=== PATIENT | male | born 2000 | race Caucasian/White ===

== ENCOUNTER 2021-09-22 11:10 | Emergency (ER) | payer OTHER, SELFPAY ==
--- NOTE | ~2021-09-22 | CT_ITS ---
EXAMINATION: CT brain wo con INDICATION: Head injury COMPARISON: None TECHNIQUE: Standard unenhanced head CT. The dose-length product (DLP) was 605.33 mGy-cm. The mA was a djusted according to patient size. Iterative reconstruction technique was employed. FINDINGS: There is no intracranial hemorrhage, acute infarction, or abnormal mass lesion. The ventric les are normal. There is no abnormal mass effect or midline shift. The kaminski-white matter differentiat ion is normal. The basal cisterns are patent. The orbits are normal. The paranasal sinuses, mastoids and calvarium are normal. IMPRESSION: 1. No acute intracranial abnormality. Reviewed, dictated and finalized at location B.
--- NOTE | ~2021-09-22 | CT_ITS ---
EXAMINATION: CT facial & cervical spine wo DATE: 09/22/2021 12:31 INDICATION: Head injury TECHNIQUE: Computed tomography (CT) of the maxillofacial region and cervical spine was performed with out intravenous contrast. The dose-length product (DLP) was 362.45 mGy-cm. Automated exposure control and iterative reconstruction technique were employed. COMPARISON: None FINDINGS: MAXILLOFACIAL CT: No facial fracture is identified. The globes and orbits are intact. There is mild frontal scalp soft tissue swelling. There is mild mucosal thickening of the maxillary sinuses. Small polyp or mucous ret ention cyst is noted in the left maxillary sinus. CERVICAL SPINE CT: There is no fracture, dislocation, or subluxation. The vertebral body heights, alignment, and interve rtebral disc spaces are normal. The paravertebral soft tissues are unremarkable. The odontoid is inta ct. IMPRESSION: 1. No facial bone fracture. 2. Normal cervical spine. Reviewed, dictated and finalized at location B.
[2021-09-22 11:29] VITALS: BP 127/70; PULSE 74; RESP 18; TEMP 36.4; O2SAT 99
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
== END 2021-09-22 13:06 | disposition home or self-care (01) ==
PROVIDERS: Emergency Provider Nurse Practitioner Family; PCP Nurse Practitioner Family
DX: S09.90XA Unspecified injury of head, initial encounter (principal); S16.1XXA Strain of muscle, fascia and tendon at neck level, initial encounter; V49.40XA Driver injured in collision with unspecified motor vehicles in traffic accident, initial encounter
CPT/HCPCS: 70450; 70486; 72125; 99284

== ENCOUNTER 2021-12-15 16:55 | Emergency (ER) | payer OTHER, SELFPAY ==
--- NOTE | 2021-12-15 16:57 | ED.MALEGU ---
HPI - Male Genitourinary General Chief complaint: Urogenital-Male Stated complaint: STD Test Time Seen by Provider: 12/15/21 16:56 Source: patient Mode of arrival: ambulatory Limitations: no limitations History of Present Illness HPI Narrative: Mr. Michel is a 21-year-old male patient presenting to the clinic today with complaints of possible STD. He would like STD testing today. Related Data Home Medications Medication Instructions Recorded Confirmed emtricitabine 200 mg-tenofovir 1 tablet PO DIRECTED 12/15/21 12/15/21 disoproxil fumarate 300 mg tablet Allergies Allergy/AdvReac Type Severity Reaction Status Date / Time clindamycin Allergy Intermediate Rash Verified 12/15/21 17:09 Review of Systems Review of Systems: Pertinent positives per HPI. Patient denies any fever, chills, rash, headache, visual changes, dizziness, cough, runny nose, sore throat, shortness of breath, chest pain, palpitations, nausea, vomiting, diarrhea, constipation, abdominal pain, or any urinary issues. PMFSH Comments At the time of my signature, I reviewed and agree with the nursing past medical, surgical, social, and family history. There is no relevant family history pertinent to the patient complaint. Exam Narrative: General: Well-developed, well nourished, in no apparent distress. Head: Normocephalic, atraumatic. Cardio: Regular rate and rhythm, s1 and s2 normal, no murmur appreciated. Resp: Clear to auscultation bilaterally, no rhonchi, rales, wheezing or rubs. Abdomen: Soft, pliable, bowel sounds present in all quadrants, non-tender to palpation, no organomegly, no CVAT tenderness. : Deferred Course Course Emergency Course: Portions of this record may have been created with voice recognition software. Level of Care: Express Care Visit Vital Signs Vital signs: Vital Signs Temperature 36.4 C 12/15/21 17:00 Pulse Rate 80 12/15/21 17:00 Respiratory Rate 16 12/15/21 17:00 Blood Pressure 117/65 12/15/21 17:00 Pulse Oximetry 100 12/15/21 17:00 Oxygen Delivery Room Air 12/15/21 17:00 Temperature 36.4 C 12/15/21 17:00 Pulse Rate 80 12/15/21 17:00 Respiratory Rate 16 12/15/21 17:00 Blood Pressure 117/65 12/15/21 17:00 Pulse Oximetry 100 12/15/21 17:00 Oxygen Delivery Room Air 12/15/21 17:00 Vital signs reviewed MDM - Male Genitourinary MDM Narrative Medical decision making narrative: At the time of visit patient is resting comfortably on the exam table. Discharge Plan Discharge Clinical Impression: Exposure to gonorrhea Patient Disposition: Home, Self-Care Condition: Stable Instructions: Antibiotic Form, Safe Sex Practices (ED), Gonorrhea (ED) Additional Instructions: UA sent for testing for trichomonas, chlamydia, and gonorrhea We have tested/treated you for STIs in the clinic today. Avoid any sexual activity- includes oral, anal, or vaginal intercourse until you get results back and have completed any additional recommended treatment regimens. Results typically can take 7-10 days to come back. We will contact you if testing is positive and make sure your treatment was appropriate for the type of STI. If symptoms worsen after treatment recommend reevaluation with your PCP or Express care. Prescriptions: New doxycycline monohydrate 100 mg capsule 100 mg PO BID 7 Days Qty: 14 0RF Follow-up/Referrals: Gage,SHERI Jefferson [Primary Care Provider] - Time of Disposition: 17:11 Quality NIHSS Nursing Documentation ED NIHSS nursing documentation: reviewed/agree
[2021-12-15 17:00] VITALS: BP 117/65; PULSE 80; RESP 16; TEMP 36.4; O2SAT 100
[2021-12-15] MEDS: cefTRIAXone 500 MG, LIDOCAINE HCL 1% LOCAL INJ 1 ML IM (17:10)
[2021-12-15 17:35] VITALS: BP 117/64; PULSE 71; O2SAT 100
--- NOTE | 2021-12-15 17:54 | PC.NURSE ---
pt was standing up in room 6 at the [facility] to get an IM injection, and it was holding onto the exam table due to feeling nervous about injection. i gave the injection and withdrew the needle, and pt was turning around to sit back in the chair, and pt had a vagal response before he actually got into the seated position, and fell to the floor over the chair and hit right parietal head on the floor. pt aroused with a sternal rub, initially looking confused but reoriented with all express care staff now in room. pt then had a second, or rebound syncopal vagal response, and with another immediate sternal rub and instructions to keep breathing and not hold breath, pts skin coor returned to normal. we let him stay in prone position while staff went to [facility] out of room 1, and with team assist we transferred pt to stretcher safely, and taken into room one, and b/p monitor in place. 117/64 p-71, 100% ra.
[2021-12-15 17:59] VITALS: BP 124/68; PULSE 74; O2SAT 99
[2021-12-15 18:15] VITALS: BP 119/81; PULSE 79; O2SAT 100
--- NOTE | 2021-12-15 19:14 | PC.NURSE ---
1814- upon discharge pt was neuro intact, and AxOx4, eyes PERRL, vss. pt still does have slight swelling to the right parietal scalp but no bruising, and pt instructed that he can take some tylenol after he gets something to eat and can continue with an ice pack at home. pt verbalized understanding. also instructed pt to call his friend again that he was talking to earlier, and have them check on him throughout the next 48 hrs.
== END 2021-12-15 18:19 | disposition home or self-care (01) ==
PROVIDERS: Emergency Provider Nurse Practitioner Family; PCP Nurse Practitioner Family
DX: Z20.2 Contact with and (suspected) exposure to infections with a predominantly sexual mode of transmission (principal)
CPT/HCPCS: 87491; 87591; 87661; 96372; 99213; G0463; J0696

== ENCOUNTER → 2021-12-22 13:50 | Outpatient (CLI) | payer OTHER, SELFPAY ==
--- NOTE | ~2021-12-22 | US_ITS ---
US scrotum doppler INDICATION: Testicular mass TECHNIQUE: Testicular sonogram utilizing grayscale and color Doppler FINDINGS: The testes are normal in size and appearance. No focal lesions are seen. The right testes measures 4.6 x 2.3 x 3.1 cm centimeters, and the left testis measures 3.8 x 2.5 x 3.9 cm cm. There is normal vascular flow to both testes. The right and left epididymides appear normal. There is a left varicocele. There is a small right hydrocele. IMPRESSION: 1. Left-sided varicocele. 2: Small right hydrocele. Reviewed, dictated and finalized at location A.
== END ==
PROVIDERS: PCP Physician Assistant; Visit Provider Physician Assistant
DX: N50.89 Other specified disorders of the male genital organs (principal); I86.1 Scrotal varices; N43.3 Hydrocele, unspecified
CPT/HCPCS: 76870; 93976

== ENCOUNTER 2022-02-07 18:36 | Emergency (ER) | payer OTHER, SELFPAY ==
[2022-02-07 19:51] VITALS: BP 123/75; PULSE 60; RESP 16; TEMP 36.6; O2SAT 99
--- NOTE | 2022-02-07 20:06 | ED.GENADULT ---
HPI - General Adult General Chief complaint: Upper Respiratory Infection Stated complaint: uri Time Seen by Provider: 02/07/22 20:06 Source: patient Mode of arrival: ambulatory Limitations: no limitations History of Present Illness HPI narrative: 21-year-old male patient presents to the [facility] with complaints of flu-like symptoms for the past 4 days. Patient states he has had some chills but states he always has chills. Denies fevers that he is aware of. Denies body aches. Patient states he has had sinus congestion, runny nose slight cough ear pain and headache. 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 Patient states he is not vaccinated against COVID or influenza. Patient states he has not taken anything for his symptoms since they started except for some emergency yesterday. Related Data Home Medications Medication Instructions Recorded Confirmed emtricitabine 200 mg-tenofovir 1 tablet PO DIRECTED 12/15/21 12/15/21 disoproxil fumarate 300 mg tablet Allergies Allergy/AdvReac Type Severity Reaction Status Date / Time clindamycin Allergy Intermediate Rash Verified 02/07/22 19:50 Review of Systems Review of Systems: CONSTITUTIONAL: Denies fever, positive chills, denies sweats. EYES: Denies visual changes, redness, or discharge. ENT: Positive rhinorrhea, congestion, denies sore throat, or otalgia. CARDIOVASCULAR: Denies chest pain, palpitations, or edema. RESPIRATORY: Positive cough, denies dyspnea. GASTROINTESTINAL: Denies abdominal pain, nausea, vomiting, or diarrhea. GENITOURINARY: Denies dysuria or hematuria. SKIN: Denies rash or itching. MUSCULOSKELETAL: Denies back pain, joint pain, or myalgia. NEUROLOGIC: Positive headache, denies numbness, or weakness. PSYCHIATRIC: Denies anxiety or depression. ON LICENSE OF [facility] Past Medical History Medical History (Updated 02/07/22 @ 20:29 by DARCY De La Garza) Allergy-induced asthma Anxiety Depression Foot fracture, right History of strep sore throat Tonsillitis Comments At the time of my signature I agree with nursing past medical history, surgical, social, and family history. There is no relevant family history pertinent to the presenting complaint. Exam Narrative: GENERAL: Well-appearing, well-nourished, and in no acute distress. HEAD: Normocephalic, atraumatic. EYES: PERRLA and EOMI. ENT: Nares with erythema and edema noted bilaterally, no rhinorrhea or epistaxis. Mucous membranes moist. Posterior pharynx with no erythema, tonsillar enlargement, exudates or lesions present. Bilateral TMs are clear with no erythema or foreign bodies the canal. NECK: Supple. No lymphadenopathy CHEST: Patient has some expiratory wheezing noted to the left lower lobe all other lobes are clear. No respiratory distress. Patient able to talk in clear complete sentences. HEART: Regular rate and rhythm. No murmur heard. Normal peripheral pulses. ABDOMEN: Soft, nontender, nondistended, normal active bowel sounds. EXTREMITIES: Normal range of motion. No edema. SKIN: Warm, dry, no rash. NEURO: No focal deficits. Alert and oriented x3. Course Course Level of Care: Express Care Visit Reevaluation(s) Reevaluation #1: Re-evaluated patient notified him that his tests all came back negative. Discussed with patient that he most likely has some type of viral infection. Discussed with patient I encouraged supportive care including [id number] Tylenol, ibuprofen and cold and flu medication to help with symptoms. I will discharge him home with a prescription for an albuterol inhaler since he did have some expiratory wheezing left lower lobe. Encourage patient to use at least the next 1-2 days to help decrease risk of this getting worse. Patient verbalized understanding denies any other questions or concerns at this time. Date: 02/07/22 Time: 20:30 Vital Signs Vital signs: Vital Si
== END 2022-02-07 20:36 | disposition home or self-care (01) ==
PROVIDERS: Emergency Provider Nurse Practitioner Family; PCP Nurse Practitioner Family
DX: J06.9 Acute upper respiratory infection, unspecified (principal); Z20.822 Contact with and (suspected) exposure to COVID-19; J45.909 Unspecified asthma, uncomplicated
CPT/HCPCS: 87081; 87426; 87804; 87880; 99213; C9803; G0463